=== PATIENT | male | born 1995 | race Caucasian/White ===

== ENCOUNTER 2018-08-28 19:01 | Emergency (ER) | payer MEDICAID, OTHER ==
[~2018-08-28] VITALS: Ht 160 cm; Wt 88.4 kg
[2018-08-28 19:12] VITALS: BP 143/80; PULSE 62; RESP 19; Ht 160 cm; Wt 88.4 kg
[2018-08-28] MEDS ORDERED: LIDOCAINE 1% (MDV) 10 ML INJ INJ STA (20:37)
[2018-08-28] MEDS ORDERED: DIPHTH/TET/ACEL PERTUSS (ADULT) 0.5 ML VIAL IM* ONE (21:00)
[2018-08-28] MEDS ORDERED: LIDOCAINE 1%/EPI (MDV) 50 ML INJ INJ ONE (21:00)
--- NOTE | 2018-08-28 21:36 | ERD ---
ER Documentation Chief Complaint Chief Complaint RIGHT FOREARM LAC, CUT IT ON GLASS XTODAY @1630 HPI 23-year-old [id number] male presents the ED with a laceration to his right forearm sustained on 1630 today. Patient states he was at work when 1 of the toilet seat covers scraped against his arm, causing a laceration. Patient cleaned the area and came here for further evaluation. He denies any significant pain, numbness, tingling or focal weakness of his right lower extremity. He has full range motion of all of his fingers. Tetanus is not up-to-date. ROS All systems reviewed and are negative except as per history of present illness. Allergies Allergies: Coded Allergies: No Known Allergy (Unverified , 08/28/18) PMhx/Soc History of Surgery: No Anesthesia Reaction: No Hx Neurological Disorder: No Hx Respiratory Disorders: No Hx Cardiac Disorders: No Hx Psychiatric Problems: No Hx Miscellaneous Medical Probl: No Hx Alcohol Use: No Hx Substance Use: No Hx Tobacco Use: No Smoking Status: Never smoker Physical Exam Vitals Vital Signs Date Temp Pulse Resp B/P (MAP) Pulse Ox O2 O2 Flow FiO2 Time Delivery Rate 08/28/18 97.5 62 19 143/80 99 19:12 (101) Physical Exam Const: No acute distress Head: Atraumatic Eyes: Normal Conjunctiva ENT: Normal External Ears, Nose and Mouth. Neck: Full range of motion. No meningismus. Skin: + 7.5 centimeter deep laceration to right lateral forearm, no active bleeding. No tendon involvement. Full range of motion of the digits of the right hand. Full range of motion of the wrist. Radial, ulnar, medial nerves intact. Distally intact. Left upper extremity normal. Back: No midline or flank tenderness Ext: No cyanosis, or edema Neur: Awake and alert Psych: Normal Mood and Affect Results 24 hrs Current Medications Medications Dose Sig/Sharmaine Start Time Status Last (Trade) Ordered Route PRN Stop Time Admin Dose Reason Admin Diphtheria/ 0.5 ml ONCE ONCE 08/28/18 DC 08/28/18 Tetanus/Acell IM* 21:00 20:52 Pertussis 08/28/18 21:01 (Adacel) Lidocaine 10 ml ONCE STAT 08/28/18 DC HCl INJ 20:37 (Lidocaine 08/28/18 20:52 1% (Mdv) 10 ml) Lidocaine/ 20 ml ONCE ONCE 08/28/18 DC Epinephrine INJ 21:00 (Xylocaine 08/28/18 21:01 1%/ Epi (Mdv)) Procedures/MDM PROCEDURES: Laceration Repair by me: Anesthesia: 1% lidocaine locally Location: right forearm Tendon/Joint/Nerves: No injury Foreign body: None detected after copious irrigation and exploration Technique: 5-0 Simple Interrupted Sutures x9 Complexity: No subcutaneous sutures/mucosal repair/edge excision Post Closure Length: 7.5 cm ED COURSE: The patient was given Tdap The medication was well tolerated The patient remained stable throughout ED course. MEDICAL DECISION MAKIN-year-old male presents with a laceration to his right forearm. Laceration was repaired as above. His tetanus was updated. Patient's bleeding was easily controlled in the department and there is no indication of anemia. No evidence of compartment syndrome, neurologic injury, vascular injury, open joint, tendon laceration, or foreign body. Patient is appropriate for outpatient follow up. Recommended wound recheck in 48 hours, suture removal in 7 to 10 days. Strict return precautions were discussed. PRESCRIPTIONS: None SPECIALIST FOLLOW UP RECOMMENDED: None Patient has been advised to follow up with primary care in 1-2 days. Departure Diagnosis: Primary Impression: Laceration Condition: Stable Patient Instructions: Laceration, Hand Referrals: COMMUNITY CLINICS YOU HAVE RECEIVED A MEDICAL SCREENING EXAM AND THE RESULTS INDICATE THAT YOU DO NOT HAVE A CONDITION THAT REQUIRES URGENT TREATMENT IN THE EMERGENCY DEPARTMENT. FURTHER EVALUATION AND TREATMENT OF YOUR CONDITION CAN WAIT UNTIL YOU ARE SEEN IN YOUR DOCTORS OFFICE WITHIN THE NEXT 1-2 DAYS. IT IS YOUR RESPONSIBILITY TO MAKE AN APPOINTMENT FOR FOLOW-UP CARE. IF YOU HAVE A PRIMARY DOCTOR --you should call your primary doctor and schedule an appointment IF YOU DO NOT HAVE A PRIMARY DOCTOR YOU CAN CALL OUR PHYSICIAN REFERRAL HOTLINE AT IF YOU CAN NOT AFFORD TO SEE A PHYSICIAN YOU CAN CHOSE FROM THE FOLLOWING [facility] [address] [facility] [address] [facility]. [facility] [address] [facility] [address] [facility] [address] [facility]. [facility] [address] [facility]. [facility] YOU HAVE RECEIVED A MEDICAL SCREENING EXAM AND THE RESULTS INDICATE THAT YOU DO NOT HAVE A CONDITION THAT REQUIRES URGENT TREATMENT IN THE EMERGENCY DEPARTMENT. FURTHER EVALUATION AND TREATMENT OF YOUR CONDITION CAN WAIT UNTIL YOU ARE SEEN IN YOUR DOCTORS OFFICE WITHIN THE NEXT 1-2 DAYS. IT IS YOUR RESPONSIBILITY TO MAKE AN APPOINTMENT FOR FOLOW-UP CARE. IF YOU HAVE A PRIMARY DOCTOR --you should call your primary doctor and schedule and appointment IF YOU DO NOT HAVE A PRIMARY DOCTOR YOU CAN CALL OUR PHYSICIAN REFERRAL HOTLINE AT . IF YOU CAN NOT AFFORD TO SEE A PHYSICIAN YOU CAN CHOSE FROM THE FOLLOWING [facility] INSTITUTIONS: [facility] [address] [place] [address] [facility] [address] [place] [address] [facility] + [facility] [address] [place] [address] [facility]RGENT [facility]/SPECIALTIES Additional Instructions: Wound must be rechecked in 48 hours. Keep it clean and covered until it is rechecked. Sutures can removed and 7 to 10 days. This can be done either at an urgent care, a primary care provider, or he can return here. Monitor for any signs of worsening pain, fevers, wound discharge, redness or any other symptoms. MYESHA BOGGS PA-C August 28, 2018 21:36
[2018-08-28] MEDS ORDERED: BACITRACIN 0.9 GM OINT TOP ONE (22:30)
== END 2018-08-28 22:49 | disposition home or self-care (01) ==
LOC: FTE 19:01
DX: S51.811A Laceration without foreign body of right forearm, initial encounter (principal); W25.XXXA Contact with sharp glass, initial encounter; Y92.9 Unspecified place or not applicable; Z23 Encounter for immunization
CPT/HCPCS: 12002; 90471; 90715; Z7502; Z7610

== ENCOUNTER 2018-08-30 15:24 | Emergency (ER) | payer MEDICAID ==
[~2018-08-30] VITALS: Wt 80.0 kg
[2018-08-30 15:29] VITALS: BP 122/65; PULSE 57; RESP 18
[2018-08-30] MEDS ORDERED: BACI28.34 TOP (15:52)
--- NOTE | 2018-08-30 21:52 | ERD ---
ER Documentation Chief Complaint Chief Complaint RFA WOUND CHECK HPI 23-year-old male presenting to the emergency department for wound check to the right upper extremity. He denies any discharge, bleeding, significant pain, or other symptoms at this time. No other complaints currently. ROS All systems reviewed and are negative except as per history of present illness. Medications Home Meds Active Scripts Bacitracin* (Bacitracin Zinc Oint*) 28.35 Gm Oint, 1 APPLIC TOP BID, #1 TUB APPLI TO Prov:MARGAUX CRESPO PA-C 08/30/18 Allergies Allergies: Coded Allergies: No Known Allergy (Unverified , 08/28/18) PMhx/Soc Medical and Surgical Hx: pt denies Medical Hx History of Surgery: No Anesthesia Reaction: No Hx Neurological Disorder: No Hx Respiratory Disorders: No Hx Cardiac Disorders: No Hx Psychiatric Problems: No Hx Miscellaneous Medical Probl: No Hx Alcohol Use: No Hx Substance Use: No Hx Tobacco Use: No FmHx Family History: No diabetes Physical Exam Vitals Vital Signs Date Temp Pulse Resp B/P (MAP) Pulse Ox O2 O2 Flow FiO2 Time Delivery Rate 08/30/18 98.5 57 18 122/65 99 15:29 (84) Physical Exam Const: No acute distress Head: Atraumatic Eyes: Normal Conjunctiva ENT: Normal External Ears, Nose and Mouth. Neck: Full range of motion. No meningismus. Resp: No respiratory distress. Skin: No petechiae or rashes Ext: [address] over a well healing laceration to the right upper extremity. No discharge. No warmth. No lymphatic streaking. Neur: Awake and alert Psych: Normal Mood and Affect Procedures/MDM Wound shows no evidence of infection, foreign body, neurologic injury, vascular injury, open joint or tendon laceration. Patient appropriate for outpatient follow up. Departure Diagnosis: Primary Impression: Encounter for wound re-check Condition: Fair Patient Instructions: Wound Check, Lac F/U (No Infection) Referrals: [facility]) Usted se jenkins hecho un examen mdico de control que le indica que no est en sridhar condicin que requiera tratamiento urgente en el Departamento de Emergencia. Un estudio ms profundo y el tratamiento de pederson condicin pueden esperar sin ningn riesgo hasta que usted sea atendida/o en el consultorio de pederson mdico o sridhar clnica. Es responsabilidad suya arreglar sridhar fanny para el seguimiento del ada. MANEJO DE CONDICIONES NO URGENTES EN EL FUTURO 1) Si usted tiene un mdico de atencin primaria: Usted debera llamar a pederson mdico de atencin primaria antes de venir al departamento de emergencia. Despus de las horas de consultorio, pederson doctor o pederson asociado/a est disponible por telfono. El mdico o enfermero de laxmi en el servicio telefnico puede asesorarle por antonina medio para atender el problema, o ada contrario se puede programar sridhar fanny. 2) Si usted no tiene un mdico de atencin primaria: Llame al mdico o clnica de referencia que aparece abajo brock las horas de consultorio para hacer sridhar fanny para que le vean. CLINICAS: [facility] [phone] [address] [facility]., [facility] [phone] [address] [facility]. [facility] [phone] [address] [facility]. [facility] [phone] [address] [facility]. [place] [phone] [facility]. [phone] [address] Additional Instructions: SUTURE REMOVAL:CONSULTE A PEDERSON MDICO PARA SACAR PEDERSON PUNTOS.PARA LA RANDALL 5-6 bolivar.EN OTRO LUGAR 5-7 SILVA. MARGAUX CRESPO PA-C August 30, 2018 21:52
== END 2018-08-30 16:05 | disposition home or self-care (01) ==
LOC: E/R 15:24
DX: Z48.01 Encounter for change or removal of surgical wound dressing (principal)
CPT/HCPCS: 99282